=== PATIENT | male | born 1970 | race Caucasian/White ===

== ENCOUNTER 2018-03-07 07:35 | Emergency (ER) | payer BC ==
[2018-03-07] MEDS ORDERED: EPINEPHrine AMP 1 MG/ML IM ONE (07:48)
[2018-03-07] MEDS ORDERED: methylPREDNISolone 125 MG* 2 ML VIAL IM ONE (07:49)
[2018-03-07 07:50] VITALS: BP 128/87
[2018-03-07] MEDS ORDERED: diPHENhydraMINE IV* 50 MG/ML 1 ml VIAL (BENADRYL) IM ONE (07:50)
[2018-03-07] MEDS ORDERED: Famotidine TAB* 20 MG PO ONE (07:50)
--- NOTE | 2018-03-07 07:58 | UC ---
Allergic Reaction HPI - HPI Summary HPI Summary: Patient is a 47 y/o M who was riding bike, stung on lower lip by yellow jacket. Sting occurred at around 0750 today. Patient reports no difficulty breathing, no tingling or numbness in lips or tongue. He notes swelling of lower lip. On nurse's note, pain is denied. Patient was given Benadryl, Sx are improving. Patient reports Hx of reaction to bee stings. He notes one prior incident where he stepped on yellow jacket before and subsequently broke into hives. He also mentions a handful of non-yellow jacket stings which have occurred and states reactions to these stings have normally been localized. - History of Current Complaint Stated Complaint: BEE STING Time Seen by Provider: 03/07/18 07:47 Hx Obtained From: Patient Onset/Duration: Sudden Onset, Lasting Minutes - onset 0750 Severity Currently: None - pain is denied Pain Scale Used: 0-10 Numeric - 0/10 Location: Discrete @ - lower lip Character: Swelling Aggravating Factor(s): Other - bee sting Associated Signs And Symptoms: Positive: Other: - NEGATIVE: numbness or tingling of lower lip and tongue POSITIVE: lower lip swelling. Negative: Difficulty Breathing - Allergies/Home Medications Allergies/Adverse Reactions: Allergies Allergy/AdvReac Type Severity Reaction Status Date / Time azithromycin Allergy Unknown Verified 03/07/18 07:51 Reaction Details yellow jackets Allergy Hives Uncoded 03/07/18 07:51 PMH/Surg Hx/FS Hx/Imm Hx Endocrine History: Other Other Endocrine History: NEGATIVE: Diabetes Cardiovascular History: Other Other Cardiovascular History: NEGATIVE: HTN Other History Of: Negative For: Anticoagulant Therapy - Surgical History Surgical History: Yes Surgery Procedure, Year, and Place: RIGHT ACL repair in 1998 - Family History Known Family History: Negative: Hypertension, Diabetes - Social History Alcohol Use: Occasionally Substance Use Type: None Smoking Status (MU): Never Smoked Tobacco - Immunization History Most Recent Influenza Vaccination: 2013 Most Recent Tetanus Shot: 2009 Most Recent Pneumonia Vaccination: n/a Review of Systems Skin: Other - POSITIVE: lower lip swelling NEGATIVE: tingling/numbness of tongue and lower lip Respiratory: Other - NEGATIVE: difficulty breathing All Other Systems Reviewed And Are Negative: Yes Physical Exam - Summary Physical Exam Summary: Appearance: Well-appearing, Well-nourished Skin: Warm; significant swelling to the lower lip not affecting breathing or speaking. All else normal. Eyes: Normal ENT: Normal Neck: Supple, nontender Respiratory: Clear to auscultation Cardiovascular: Normal S1, S2. No murmurs. Normal distal pulses in tibial and radial bilaterally. Abdomen: Soft, nontender Musculoskeletal: Normal, Strength/ROM Intact Neurological: Normal, A&Ox3 Psychiatric: Normal General: No acute distress Triage Information Reviewed: Yes Vital Signs: Initial Vital Signs Temp 97.1 F 03/07/18 07:43 Pulse 66 03/07/18 07:43 Resp 16 03/07/18 07:43 BP 128/87 03/07/18 07:43 Pulse Ox 98 03/07/18 07:43 Vital Signs Reviewed: Yes Re-Evaluation - Re-Evaluation First Eval Re-Evaluation Time: 08:56 Change: Improved Comment: Patient Sx have improved. He will be discharged to home with prescriptions. Patient is agreeable with this plan. Allergic Reaction Course/Dx - Course Course Of Treatment: Patient showed marked improvement after medications administered, denies any chest pain shows breath palpitations. Patient instructed to use EpiPen at home if needed for any repeat episodes, also instructed to return immediately for any worsening or concerning symptoms. Agrees to and understands discharge instructions. Vitals stable. - Differential Dx/Diagnosis Provider Diagnoses: angioedema due to bee sting Discharge - Sign-Out/Discharge Documenting (check all that apply): Patient Departure - discharge All imaging exams completed and their final reports reviewed: No Studies - Discharge Plan Condition: Stable Disposition: HOME Prescriptions: diphenhydrAMINE HCl [Benadryl] 25 mg PO DAILY #5 capsule EPINEPHrine [Epipen 2-Deon] 0.3 mg IM ONCE PRN #1 inj PRN Reason: Shortness Of Breath predniSONE TAB* [Deltasone TAB*] 50 mg PO DAILY #5 tab Patient Education Materials: Angioedema (ED) Referrals: Herrera Camara MD [Primary Care Provider] - Additional Instructions: PLEASE TAKE MEDICATIONS DIRECTED. PLEASE USE EPIPEN IN CASES OF EMERGENCY ESPECIALLY WITH LIP OR TONGUE SWELLING THAT CAUSES YOU TO HAVE SHORTNESS OF BREATH DUE TO AN ALLERGIC REACTION. PLEASE RETURN TO THE EMERGENCY DEPARTMENT FOR ANY WORSENING OR CONCERNING SYMPTOMS. CLINIC APPOINTMENT TO SEE HER PRIMARY CARE DOCTOR WITHIN 1-2 WEEKS. - Billing Disposition and Condition Condition: STABLE Disposition: Home - Attestation Statements Document Initiated by Scribe: Yes Documenting Scribe: Denys Perez Provider For Whom Scribe is Documenting (Include Credential): Bart aT Scribe Attestation: IDenys, scribed for Bart Ta on 03/07/18 at 0948. Scribe Documentation Reviewed: Yes Provider Attestation: The documentation as recorded by the eduardaibDenys morrison accurately reflects the service I personally performed and the decisions made by me, Bart Ta
[2018-03-07] MEDS ORDERED: EPINEPHRINE 1 MG/ML 1 ML VIAL ONE (08:05)
== END 2018-03-07 09:17 | disposition home or self-care (01) ==
LOC: UCEAST 07:35
DX: T78.3XXA Angioneurotic edema, initial encounter (principal); T63.441A Toxic effect of venom of bees, accidental (unintentional), initial encounter; R22.0 Localized swelling, mass and lump, head; Z88.1 Allergy status to other antibiotic agents; Z91.038 Other insect allergy status; Y92.9 Unspecified place or not applicable
CPT/HCPCS: 96372; 99202; A9270-GY; G0463; J0171; J1200; J2930

== ENCOUNTER 2018-07-20 15:08 | Emergency (ER) | payer BC, OTHER ==
--- NOTE | 2018-07-20 17:40 | ED ---
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 He rates his pain as an 8/10. He claims that his tools were clean. - History of Current Complaint Chief Complaint: EDExtremityUpper Stated Complaint: LAC ON THUMB Time Seen by Provider: 07/20/18 17:28 Hx Obtained From: Patient Mechanism Of Injury: Other - laceration from a wafer machine operator Onset/Duration: Started Hours Ago, Traumatic, Still Present Timing: Constant, Lasting Hours Severity Initially: Severe Severity Currently: Severe Pain Location: Finger - thumb Character: Unable to Describe Aggravating Factor(s): Nothing Alleviating Factor(s): Nothing Associated Signs & Symptoms: Negative: Fever - Allergies/Home Medications Allergies/Adverse Reactions: Allergies Allergy/AdvReac Type Severity Reaction Status Date / Time azithromycin Allergy Unknown Verified 07/20/18 15:22 Reaction Details yellow jackets Allergy Hives Uncoded 07/20/18 15:22 PMH/Surg Hx/FS Hx/Imm Hx Endocrine/Hematology History: Denies: Hx Anticoagulant Therapy, Hx Blood Disorders, Hx Blood Transfusions, Hx Diabetes, Hx Systemic Lupus Erythematosus, Hx Sickle Cell Disease, Hx Thyroid Disease, Hx Anemia, Hx Unexplained Bleeding, Other Endocrine/ Hematological Disorders Cardiovascular History: Denies: Hx Congestive Heart Failure, Hx Hypertension, Hx Pacemaker/ICD GI History: Reports: Hx Jaundice - currently jaundiced, Other GI Disorders - admitted for pancreatitis Denies: Hx Cirrhosis, Hx Crohn's Disease, Hx Diverticulosis, Hx Gall Bladder Disease, Hx Gastroesophageal Reflux Disease, Hx Gastrointestinal Bleed, Hx Hiatal Hernia, Hx Irritable Bowel, Hx Obstructive Bowel, Hx Ileostomy, Hx Pyloric Stenosis, Hx Ulcer History: Denies: Hx Acute Renal Failure, Hx Benign Prostatic Hyperplasia, Hx Chronic Renal Failure, Hx Dialysis, Hx Kidney Infection, Hx Kidney Stones, Hx Renal Disease, Other Problems/Disorders Musculoskeletal History: Reports: Hx Orthopedic Injury - hx ACL repair, Other Musculoskeletal History - hx ACL repair Denies: Hx Arthritis, Hx Rheumatoid Arthritis, Hx Back Problems, Hx Bursitis , Hx Congenital Bone Abnormalities, Hx Fibromyalgia, Hx Gout, Hx Osteoporosis, Hx Scoliosis, Hx Tendonitis Sensory History: Reports: Hx Contacts or Glasses - reading glasses Denies: Hx Cataracts, Hx Eye Injury, Hx Eye Prosthesis, Hx Glaucoma, Hx Legally Blind, Hx Macular Degeneration, Hx Vision Problem, Hx Deafness, Hx Hearing Aid, Hx Hearing Problem, Other Sensory Impairments Opthamlomology History: Reports: Hx Contacts or Glasses - reading glasses Denies: Hx Cataracts, Hx Eye Injury, Hx Eye Prosthesis, Hx Glaucoma, Hx Legally Blind, Hx Macular Degeneration, Hx Vision Problem, Other Sensory Impairments Neurological History: Reports: Hx Headaches, Hx Migraine - hx of migraines as child Denies: Hx Dementia, Hx Developmental Delay, Hx Nerve Disease, Hx Seizures, Hx Spinal Cord Injury, Hx Transient Ischemic Attacks (TIA), Other Neuro Impairments/Disorders Psychiatric History: Denies: Hx Anxiety, Hx Attention Deficit Hyperactivity Disorder, Hx Eating Disorder, Hx Depression, Hx Panic Disorder, Hx Post Traumatic Stress Disorder, Hx Inpatient Treatment, Hx Community Mental Health Tx, Hx Schizophrenia, Hx Bipolar Disorder, Hx Suicide Attempt, Hx of Violent Episodes Against Others, Hx Substance Abuse - Cancer History Hx Chemotherapy: No Hx Radiation Therapy: No Hx Palliative Cancer Treatment: No - Surgical History Surgery Procedure, Year, and Place: RIGHT ACL repair in 1998. CHOLECYSTECTOMY Hx Anesthesia Reactions: No Infectious Disease History: No Infectious Disease History: Denies: Hx Clostridium Difficile, Hx Hepatitis, Hx Human Immunodeficiency Virus (HIV), Hx of Known/Suspected MRSA, Hx Shingles, Hx Tuberculosis, Hx Known/ Suspected VRE, Hx Known/Suspected VRSA, History Other Infectious Disease, Traveled Outside the [place] in Last 30 Days - Family History Known Family History: Negative: Hypertension, Diabetes - Social History Alcohol Use: Occasionally Substance Use Type: Reports: None Smoking Status (MU): Never Smoked Tobacco Review of Systems Negative: Fever Positive: Other - positive: laceration left thumb All Other Systems Reviewed And Are Negative: Yes Physical Exam - Summary Physical Exam Summary: Appearance: Well appearing, no pain distress Skin: warm, dry, reflects adequate perfusion Head/face: normal Eyes: EOMI, NIKITA ENT: mucous membranes moist Neck: supple, non-tender Respiratory: CTA, breath sounds present Cardiovascular: RRR, pulses symmetrical Abdomen: non-tender, soft Bowel Sounds: present Musculoskeletal: macerated 2cm x 2cm Complex laceration mid volar thumb, 2cm x 0.5cm laceration over IP joint, strength/ROM intact Neuro: normal, sensory motor intact, A&Ox3 Triage Information Reviewed: Yes Vital Signs On Initial Exam: Initial Vitals Temp Pulse Resp BP Pulse Ox 97.9 F 73 19 153/113 100 07/20/18 15:16 07/20/18 15:16 07/20/18 15:16 07/20/18 15:16 07/20/18 15:16 Vital Signs Reviewed: Yes Procedures - Laceration/Wound Repair 1 Location: upper extremity Description: Irregular - macerated Length, Depth and Shape: 2cm x 2cm complex laceration mid volar thumb. 2cm x 0.5cm laceration over IP joint Betadine Prep?: No - chlorhexidine Irrigated w/ Saline (ccs): 2,000 - complex laceration/skin avulsion Laceration/Wound Explored: clean, no foreign body removed Closure: Skin Adhesive, Multilayer Suture Type: Prolene - 3, 5-0 Prolene skin horizontal mattress skin layer, Other - Dermal 5-0 Vicryl x 2 simple interrupted Diagnostics - Vital Signs Vital Signs Temp Pulse Resp BP Pulse Ox 07/20/18 15:16 97.9 F 73 19 153/113 100 - Laboratory Lab Statement: Any lab studies that have been ordered have been reviewed, and results considered in the medical decision making process. Course/Dx - Course Course Of Treatment: Nurse's notes reviewed. Tetanus is up-to-date. Patient refused x-ray. Avulsion of a great portion of the volar surface skin of the nondominant left thumb. Keflex given here after extensive irrigation. The soft tissues tacked in place with Vicryl and distal laceration repaired with Prolene. The wound was dressed with Surgicel, Xeroform, tube gauze and finally with Covan. This stopped the bleeding. He will follow-up with a hand surgeon the next several days. - Diagnoses Differential Diagnosis/HQI/PQRI: Positive: Fracture (Open), Laceration Provider Diagnoses: Avulsion of skin of thumb Discharge - Sign-Out/Discharge Documenting (check all that apply): Patient Departure - DC - Discharge Plan Condition: Improved Disposition: HOME Prescriptions: Cephalexin CAP* [Keflex CAP*] 500 mg PO QID #40 cap Hydrocodone/Acetaminophen [Hydrocodone-Acetamin 5-325 mg] 1 each PO Q6H PRN #12 tablet MDD 4 PRN Reason: Severe Pain Patient Education Materials: Skin Avulsion (ED) Referrals: Herrera Camara MD [Primary Care Provider] - Claire Samuels MD [Medical Doctor] - Additional Instructions: Call the orthopedist to schedule prompt appointment for wound recheck with the hand surgeon. Keep clean and dry. Take the antibiotics. Pain medicines as prescribed. Off work. Return if worse, high fever, new symptoms or other concerns. - Billing Disposition and Condition Condition: IMPROVED Disposition: Home - Attestation Statements Document Initiated by Monico: Yes Documenting Scribe: Osman Napier Provider For Whom Monico is Documenting (Include Credential): Adrian Soriano MD Scribe Attestation: I, Osman Napier scribed for Adrian Soriano MD on 07/20/18 at 1850. Scribe Documentation Reviewed: Yes Provider Attestation: The documentation as recorded by the Osman weinberg accurately reflects the service I personally performed and the decisions made by me, Adrina Soriano MD Status of Scribe Document: Viewed
[2018-07-20] MEDS ORDERED: Lidocaine 1% INJ* 10 MG/ML 30 ML SDV ONE (17:47)
[2018-07-20] MEDS ORDERED: Cephalexin CAP* 500 MG PO ONE (18:20)
[2018-07-20 19:05] VITALS: BP 135/87
== END 2018-07-20 19:05 | disposition home or self-care (01) ==
LOC: ED 15:08
DX: S61.012A Laceration without foreign body of left thumb without damage to nail, initial encounter (principal); W31.2XXA Contact with powered woodworking and forming machines, initial encounter; Y92.9 Unspecified place or not applicable
CPT/HCPCS: 12031; 99282; A9270-GY

== ENCOUNTER 2019-02-25 13:51 | Emergency (ER) | payer BC ==
[2019-02-25] MEDS ORDERED: Famotidine IV* 10 MG/ML 2 ML (20 mg) ONE ×2 (13:58→14:00)
[2019-02-25] MEDS ORDERED: methylPREDNISolone 125 MG* 2 ML VIAL ONE (14:00)
[2019-02-25] MEDS ORDERED: NS 0.9% 1000 ML** 1,000 ML IV ONE (14:03)
[2019-02-25 16:32] VITALS: BP 118/75
--- NOTE | 2019-02-25 16:32 | ED ---
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 He states he was mowing his lawn when he passed by a recycling bin. As he did so, a swarm of bees emerged from the bin and he reports that he got stung 20-25 times. The patient discovered his allergy to bee stings during a previous episode by stepping on a bee, which caused a hives reaction on his foot. The last time that the patient was stung by a bee was approximately one and a half years ago, when a bee stung his lip. The only symptom that resulted from this episode was swelling of the lip. However, during this episode, no SOB occurred. GLOBAL RECRUITER, patient received 75 mg Benadryl PO and epi. Patient reports the presence of hives on his trunk and BLE at present, but denies CP, difficulty swallowing, SOB, throat closing, or the swelling of lips or tongue for today's episode. Patient did report feeling a tingling in his lips and pressure in his ears during the car ride to the hospital. He was experiencing SMITH in the ED, but he relates this to feelings of excitement. The patient denied medical history, but confirmed past cholecystectomy, which occurred two weeks ago, and knee surgery. Patient drinks alcohol socially. - History of Current Complaint Chief Complaint: EDAllergicReaction Time Seen by Provider: 02/25/19 14:03 Hx Obtained From: Patient Onset/Duration: Sudden Onset Timing: Constant Severity Currently: None Pain Intensity: 0 Pain Scale Used: 0-10 Numeric Location: Other - trunk and BLE Alleviating Factor(s): Antihistamines - 75mg Benadryl, Epinephrine - Administered prior to visit Associated Signs And Symptoms: Positive: Other: - Negative lip and tongue swelling, dysphagia; positive erythema of trunk and BLE; pressure in ears; headache. Negative: Chest Pain, Difficulty Breathing, Throat Tightening - Related Hx Possible Reaction To: Insect - Bee sting - Allergies/Home Medications Allergies/Adverse Reactions: Allergies Allergy/AdvReac Type Severity Reaction Status Date / Time azithromycin Allergy Unknown Verified 07/20/18 15:22 Reaction Details yellow jackets Allergy Hives Uncoded 07/20/18 15:22 PMH/Surg Hx/FS Hx/Imm Hx Endocrine/Hematology History: Denies: Hx Anticoagulant Therapy, Hx Blood Disorders, Hx Blood Transfusions, Hx Diabetes, Hx Systemic Lupus Erythematosus, Hx Sickle Cell Disease, Hx Thyroid Disease, Hx Anemia, Hx Unexplained Bleeding, Other Endocrine/ Hematological Disorders Cardiovascular History: Denies: Hx Congestive Heart Failure, Hx Hypertension, Hx Pacemaker/ICD GI History: Reports: Hx Jaundice - currently jaundiced, Other GI Disorders - admitted for pancreatitis Denies: Hx Cirrhosis, Hx Crohn's Disease, Hx Diverticulosis, Hx Gall Bladder Disease, Hx Gastroesophageal Reflux Disease, Hx Gastrointestinal Bleed, Hx Hiatal Hernia, Hx Irritable Bowel, Hx Obstructive Bowel, Hx Ileostomy, Hx Pyloric Stenosis, Hx Ulcer History: Denies: Hx Acute Renal Failure, Hx Benign Prostatic Hyperplasia, Hx Chronic Renal Failure, Hx Dialysis, Hx Kidney Infection, Hx Kidney Stones, Hx Renal Disease, Other Problems/Disorders Musculoskeletal History: Reports: Hx Orthopedic Injury - hx ACL repair, Other Musculoskeletal History - hx ACL repair Denies: Hx Arthritis, Hx Rheumatoid Arthritis, Hx Back Problems, Hx Bursitis , Hx Congenital Bone Abnormalities, Hx Fibromyalgia, Hx Gout, Hx Osteoporosis, Hx Scoliosis, Hx Tendonitis Sensory History: Reports: Hx Contacts or Glasses - reading glasses Denies: Hx Cataracts, Hx Eye Injury, Hx Eye Prosthesis, Hx Glaucoma, Hx Legally Blind, Hx Macular Degeneration, Hx Vision Problem, Hx Deafness, Hx Hearing Aid, Hx Hearing Problem, Other Sensory Impairments Opthamlomology History: Reports: Hx Contacts or Glasses - reading glasses Denies: Hx Cataracts, Hx Eye Injury, Hx Eye Prosthesis, Hx Glaucoma, Hx Legally Blind, Hx Macular Degeneration, Hx Vision Problem, Other Sensory Impairments Neurological History: Reports: Hx Headaches, Hx Migraine - hx of migraines as child Denies: Hx Dementia, Hx Developmental Delay, Hx Nerve Disease, Hx Seizures, Hx Spinal Cord Injury, Hx Transient Ischemic Attacks (TIA), Other Neuro Impairments/Disorders Psychiatric History: Denies: Hx Anxiety, Hx Attention Deficit Hyperactivity Disorder, Hx Eating Disorder, Hx Depression, Hx Panic Disorder, Hx Post Traumatic Stress Disorder, Hx Inpatient Treatment, Hx Community Mental Health Tx, Hx Schizophrenia, Hx Bipolar Disorder, Hx Suicide Attempt, Hx of Violent Episodes Against Others, Hx Substance Abuse - Cancer History Hx Chemotherapy: No Hx Radiation Therapy: No Hx Palliative Cancer Treatment: No - Surgical History Surgery Procedure, Year, and Place: RIGHT ACL repair in 1998. CHOLECYSTECTOMY Hx Anesthesia Reactions: No Infectious Disease History: Denies: Hx Clostridium Difficile, Hx Hepatitis, Hx Human Immunodeficiency Virus (HIV), Hx of Known/Suspected MRSA, Hx Shingles, Hx Tuberculosis, Hx Known/ Suspected VRE, Hx Known/Suspected VRSA, History Other Infectious Disease, Traveled Outside the [place] in Last 30 Days - Family History Known Family History: Negative: Hypertension, Diabetes - Social History Alcohol Use: Occasionally Substance Use Type: Reports: None Smoking Status (MU): Never Smoked Tobacco Review of Systems Constitutional: Other - positive - bee stings ENT: Negative - dysphagia, Other - negative throat tightening, negative tongue and lip swelling, positive pressure in ears Negative: Chest Pain Negative: Shortness Of Breath Skin: Other - erythema of trunk and BLE Neurological: Other - positive - tingling of lips Positive: Headache All Other Systems Reviewed And Are Negative: Yes Physical Exam - Summary Physical Exam Summary: VITAL SIGNS: Reviewed. GENERAL: Patient is a well-developed and nourished male who is lying comfortable in the stretcher. Patient is not in any acute respiratory distress. HEAD AND FACE: No signs of trauma. No ecchymosis, hematomas or skull depressions. No sinus tenderness. EYES: PERRLA, EOMI x 2, No injected conjunctiva, no nystagmus. EARS: Hearing grossly intact. Ear canals and tympanic membranes are within normal limits. MOUTH: Oropharynx within normal limits, no swelling of tongue and lips. THROAT: No throat closing NECK: Supple, trachea is midline, no adenopathy, no JVD, no carotid bruit, no c- spine tenderness, neck with full ROM. CHEST: Symmetric, no tenderness at palpation. LUNGS: Clear to auscultation bilaterally. No wheezing or crackles. CVS: Regular rate and rhythm, S1 and S2 present, no murmurs or gallops appreciated. ABDOMEN: Soft, non-tender. No signs of distention. No rebound, no guarding, and no masses palpated. Bowel sounds are normal. EXTREMITIES: FROM in all major joints, no edema, no cyanosis or clubbing. NEURO: Alert and oriented x 3. No acute neurological deficits. Speech is normal and follows commands. SKIN: Erythema of trunk and BLE Triage Information Reviewed: Yes Vital Signs On Initial Exam: Initial Vitals Pulse Resp BP Pulse Ox 100 21 128/92 97 02/25/19 13:57 02/25/19 13:57 02/25/19 13:57 02/25/19 13:57 Vital Signs Reviewed: Yes Appearance: Positive: No Pain Distress Skin: Positive: Erythema @ - Trunk and BLE ENT: Positive: Normal ENT inspection, Tonsillar swelling Respiratory/Lung Sounds: Positive: Clear to Auscultation Diagnostics - Vital Signs Vital Signs Temp Pulse Resp BP Pulse Ox 02/25/19 16:00 55 12 96 02/25/19 15:46 50 18 113/74 97 02/25/19 15:16 50 17 112/79 95 02/25/19 15:00 50 14 98 02/25/19 14:46 48 19 122/74 97 02/25/19 14:27 57 22 120/75 96 02/25/19 14:19 55 22 128/92 97 02/25/19 14:13 98.8 F 59 20 128/92 96 02/25/19 14:00 86 13 96 02/25/19 13:57 100 21 128/92 97 - Laboratory Lab Statement: Any lab studies that have been ordered have been reviewed, and results considered in the medical decision making process. Allergic Reaction Course/Dx - Course Assessment/Plan: Patient is a 48 y/o male that presents to the ED with the chief complaint of an allergic reaction [employer]CRUITER. He states he was mowing his lawn when he passed by a recycling bin. As he did so, a swarm of bees emerged from the bin and he reports that he got stung 20-25 times. The patient discovered his allergy to bee stings during a previous episode by stepping on a bee, which caused a hives reaction on his foot. The last time that the patient was stung by a bee was approximately one and a half years ago, when a bee stung his lip. The only symptom that resulted from this episode was swelling of the lip. However, during this episode, no SOB occurred. GLOBAL RECRUITER, patient received 75 mg Benadryl PO and epi. Patient reports the presence of hives on his trunk and BLE at present, but denies CP, difficulty swallowing, SOB, throat closing, or the swelling of lips or tongue. Patient did report feeling a tingling in his lips and pressure in his ears during the car ride to the hospital. He was experiencing SMITH in the ED, but he relates this to feelings of excitement. The patient denied medical history, but confirmed past cholecystectomy, which occurred two weeks ago, and knee surgery. Patient drinks alcohol socially. In the ED course the patient was given IV fluids, Solu-Medrol and Pepcid. The patient already took 75 mg of Benadryl and he gave himself an EpiPen. After these medications were given the symptoms have resolved. He does have any complaints. Physical exam before discharge, the lungs are clear to auscultation bilaterally, he doesnt have any tongue swelling, no lip swelling, and he doesnt feel like his throat is closing. The patient was observed for approximately 3 hours in the ED and he gave the EpiPen approximately 1:30. Therefore he was observed for approximate 4 hours with no Sx. Therefore the patient will be discharged home with follow-up with PCP. Patient is hemodynamically stable alert and oriented 3. - Diagnoses Provider Diagnoses: Allergic reaction Discharge - Sign-Out/Discharge Documenting (check all that apply): Patient Departure - discharge Patient Received Moderate/Deep Sedation with Procedure: No - Discharge Plan Condition: Stable Disposition: HOME Prescriptions: EPINEPHrine [Epinephrine] 0.15 mg IJ ONCE #1 viktoriya predniSONE TAB* [Deltasone TAB*] 50 mg PO DAILY #5 tab Patient Education Materials: General Allergic Reaction (ED) Referrals: Herrera Camara MD [Primary Care Provider] - 3 Days Additional Instructions: Please return to ED if you are experiencing new or worsening symptoms. Additionally, please follow up with your primary care provider within the next three days. - Billing Disposition and Condition Condition: STABLE Disposition: Home - Attestation Statements Document Initiated by Monico: Yes Documenting Scribe: Denys Perez Provider For Whom Monico is Documenting (Include Credential): Dr. Óscar Hilton MD Scribe Attestation: Denys Thompson scribed for Dr. Óscar Hilton MD on 02/26/19 at 0747. Scribe Documentation Reviewed: Yes Provider Attestation: The documentation as recorded by the Denys weinberg accurately reflects the service I personally performed and the decisions made by me, Dr. Óscar Hilton MD Status of Scribe Document: Viewed
== END 2019-02-25 17:40 | disposition home or self-care (01) ==
LOC: ED 13:51
DX: T78.40XA Allergy, unspecified, initial encounter (principal); X58.XXXA Exposure to other specified factors, initial encounter; Y93.H2 Activity, gardening and landscaping; Y92.007 Garden or yard of unspecified non-institutional (private) residence as the place of occurrence of the external cause; Z88.1 Allergy status to other antibiotic agents
CPT/HCPCS: 96360; 96361; 99282; J2930